=== PATIENT | male | born 1965 | race Caucasian/White ===

== ENCOUNTER 2016-12-01 10:41 | Emergency (ER) | payer MEDICAID ==
[2016-12-01] MEDS ORDERED: Sodium Chloride 0.9% 10 ML Syringe FLUSH PRN (11:07)
[2016-12-01] MEDS: Sodium Chloride 0.9% 1,000 ML IV ONE ×2 (11:46→13:05)
[2016-12-01] MEDS ORDERED: Thiamine 200 MG/2 ML MDV IM ONE (13:41)
[2016-12-01] MEDS ORDERED: Sodium Chloride 0.9% 1,000 ML IV SCH (14:00)
[2016-12-01] MEDS ORDERED: Metoprolol Tartrate 5 MG/5 ML SDV IVPUSH ONE ×6 (15:02→15:48)
[2016-12-01 17:00] VITALS: BP 125/68
[2016-12-01] MEDS ORDERED: LORazepam 1 MG Tab ONE (17:23)
--- NOTE | 2016-12-04 07:14 | ER ---
CHIEF COMPLAINT: Intoxication. HPI: The patient is from [place] and is visiting his father in [facility]. He had been drinking alcohol actively during his visitation and became intoxicated. The police were called to remove Mr. Alford from his father's [facility] and police brought the patient over to emergency room for psychiatric evaluation. The patient has a history of chronic alcoholism. He had been sober up to about a week prior to arrival when he started to binge drink again. The patient had been on medications including Wellbutrin for depression and metoprolol for irregular heart beats and mild hypertension. REVIEW OF SYSTEMS: The patient denies any fever or weight loss. Denies any vision changes. Denies any congestion, sore throat, or ear pain. Denies any chest pain or palpitations. Denies any coughing, shortness of breath, or wheezing. No nausea, vomiting, diarrhea, constipation, heartburn, or rectal bleeding. No urinary discomfort. No musculoskeletal pain. No joint swelling or limitations in motion. No skin rashes or sores. No focal weakness or headaches or numbness. He does have a history of depression and alcoholism, both are active. PHYSICAL EXAMINATION: GENERAL: A well-developed, well-nourished male. He is alert and oriented x3. He is in no acute distress. VITAL SIGNS: Show a temperature 98.7, pulse of 64, and irregular. Blood pressure 139/77, 98% saturated on room air and respirations of 16. EYES: Show normal conjunctiva. It is anicteric. PERRLA, EOMI. ENT: Shows normal TMs bilaterally. Nose is clear. Throat is clear. NECK: Shows no masses. No thyromegaly. LYMPH: Normal. LUNGS: Clear. HEART: Shows frequent skipped beats. No murmurs. No S3. No S4. ABDOMEN: Soft , nontender. No masses. No organomegaly. BACK: Shows no CVA or cord tenderness. EXTREMITIES: Show no clubbing, cyanosis, or edema. His gait is normal. His digits and nails are normal. Joints show no inflammation or swelling without restriction in motion. SKIN: Shows no rashes or sores. No spiders. Neuro: Shows cranial nerves II through XII to be intact. No focal deficits. PSYCH: Shows normal judgment and fair insight. He is alert. He is oriented x3. His memory is intact. His mood is appropriate and cooperative. He does have some alcohol on board. ASSESSMENT: The patient has a history of active alcoholism and depression with acute exacerbation and will likely require inpatient detox. He also was noted to have frequent PVCs on EKG without any acute ischemic changes. When placed on a cardiac monitor, he has frequent 5-6 beat runs of ventricular tachycardia that was asymptomatic. Electrolytes and blood count were normal on this patient. Urine did show some mild proteinuria. Tox screen was negative for all drugs except for alcohol with an alcohol level of 285. Troponins were listed as negative, discussed case with Dr. Morales, rn baby in [place] and ER physician in [place], Dr. Willis. They agree to accept the patient. The patient would be transferred to a hospital in [place] under hospitalist care of Dr. Hedrick. He was admitted to telemetry room 321. Before admission, he had his metoprolol replaced with slow IV titration of 15 mg. He was able to tolerate this, it did seem to slow down his ectopy a little bit, but ventricular tachycardia persisted. The patient was transferred by ground per Dr. Morales' discussion. Dr. Contreras was able to obtain information from patient's primary physician. Apparently, he just had a recent echo that showed normal ejection fraction of greater than 60%. Dr. Morales feels that in light of this , normal ejection fraction, the ventricular tach he has is very unlikely to deteriorate and that he will safely be able to transport by ground where he will be admitted to [facility] for further medication and possible inpatient detox. ALEXIS/KATIE /[id number] SEE
== END 2016-12-01 17:20 ==
LOC: LB.ED 10:41
DX: R53.1 Weakness (principal); I49.3 Ventricular premature depolarization; I47.2 Ventricular tachycardia; R53.83 Other fatigue; F10.229 Alcohol dependence with intoxication, unspecified; Y90.8 Blood alcohol level of 240 mg/100 ml or more; F32.9 Major depressive disorder, single episode, unspecified
CPT/HCPCS: 36415; 80053; 80307; 81001; 83735; 84484; 85025; 93005; 96361; 96372; 96374; 96376; 99285; A0425; A0429; G0480; J3411; J7040; J7050; J3490